=== PATIENT | female | born 1980 | race Caucasian/White ===

== ENCOUNTER 2017-10-09 14:05 | Outpatient (CLI) | payer BC | END 2017-10-09 14:06 | disposition home or self-care (01) | LOC: DTY/OP 14:05 | PROVIDERS: ATTEND Surgery | DX: E66.01 Morbid (severe) obesity due to excess calories (principal) | CPT/HCPCS: 97802 ==

== ENCOUNTER 2017-11-09 14:00 | Inpatient (IN) | payer BC ==
[2017-11-09 15:39] VITALS: BMI 54.2
[2017-11-22] MEDS ORDERED: Heparin 5,000 UNITS/ML VIAL ONE (08:28)
[2017-11-22] MEDS ORDERED: CEFAZOLIN/Water 2 GM/20 ML SYRINGE ONE (08:28)
[2017-11-22] MEDS ORDERED: Fentanyl 100 MCG/2 ML VIAL ONE ×3 (09:44→11:57)
[2017-11-22] MEDS ORDERED: Bupivacaine/Epinephrine 0.25% 30 ML VIAL ONE ×2 (09:48→09:49)
[2017-11-22] MEDS ORDERED: Promethazine HCl 25 MG/ML VIAL SLOW IVP PRN (11:51)
[2017-11-22] MEDS ORDERED: Promethazine HCl 25 MG/ML VIAL IM PRN ×2 (11:51→13:46)
[2017-11-22] MEDS ORDERED: Meperidine HCl/PF 25 MG/ML VIAL SLOW IVP PRN (11:51)
[2017-11-22] MEDS ORDERED: Ondansetron HCl/PF 4 MG/2 ML Vial IVP PRN ×2 (11:51→13:46)
[2017-11-22] MEDS ORDERED: HYDROmorphone 2 MG/ML VIAL SLOW IVP PRN (11:51)
[2017-11-22] MEDS ORDERED: fentaNYL Citrate/PF 2,000 MCG in Sodium Chloride 0.9% 60 ML IV PRN (12:31)
[2017-11-22] MEDS ORDERED: diphenhydrAMINE 50 MG/ML VIAL IVP PRN ×2 (12:31→13:46)
[2017-11-22] MEDS ORDERED: diphenhydrAMINE 50 MG/ML VIAL IM PRN (12:31)
[2017-11-22] MEDS ORDERED: Ketorolac Tromethamine 30 MG/ML VIAL IVP PRN (12:31)
[2017-11-22] MEDS ORDERED: Zolpidem Tartrate 5 MG TAB PO PRN (12:31)
[2017-11-22] MEDS ORDERED: diphenhydrAMINE 25 MG CAP PO PRN (12:31)
[2017-11-22] MEDS ORDERED: Naloxone HCl 0.4 mg/ml Vial IV PRN (12:31)
[2017-11-22] MEDS ORDERED: Labetalol HCl 100 MG/20 ML VIAL ONE (12:34)
[2017-11-22] MEDS ORDERED: Communication Order-Pharmacy FS SCH (12:45)
[2017-11-22] MEDS ORDERED: Dextrose 5% in Water 1,000 ML IV PRN (13:46)
[2017-11-22] MEDS ORDERED: Dextrose 50% Abboject 50 ML SYRINGE SLOW IVP PRN (13:46)
[2017-11-22] MEDS ORDERED: hydrALAZINE 20 MG/ML VIAL SLOW IVP PRN (13:46)
[2017-11-22] MEDS ORDERED: Hydrocodone-Acetamin 15 ML UDCUP PO PRN (13:46)
[2017-11-22] MEDS: Acetaminophen 1,000 MG in Premix Bag 1 BAG IVPB SCH ×2 (15:02→20:37)
[2017-11-22] MEDS: D5 1/2 NS w/20 mEq KCL 1,000 ML IV SCH (15:02)
[2017-11-22] MEDS: Ondansetron HCl/PF 4 MG/2 ML Vial IVP PRN (16:41)
[2017-11-22] MEDS: Enoxaparin Sodium 40 MG/0.4 ML SYRINGE SC SCH (20:38)
[2017-11-23] MEDS: D5 1/2 NS w/20 mEq KCL 1,000 ML IV SCH ×4 (00:59→21:03)
[2017-11-23] MEDS ORDERED: Pantoprazole 40 MG VIAL ONE (09:37)
[2017-11-23] MEDS: Acetaminophen 1,000 MG in Premix Bag 1 BAG IVPB SCH ×2 (11:22→11:23)
[2017-11-23] MEDS: Pantoprazole 40 MG VIAL IVP SCH (11:23)
--- NOTE | 2017-11-23 11:54 | OP ---
DATE OF SERVICE: 11/22/2017 PREOPERATIVE DIAGNOSIS: Morbid obesity, BMI 54. POSTOPERATIVE DIAGNOSES: Morbid obesity, BMI 54; paraesophageal hiatal hernia. PROCEDURE: 1. Laparoscopic sleeve gastrectomy with [place] staple line reinforcements and 38 [place] bougie. 2. Paraesophageal laparoscopic hiatal hernia repair without mesh or fundoplication. SURGEON: Nate Johnston M.D. ANESTHESIA: General. ESTIMATED BLOOD LOSS: Minimal. COMPLICATIONS: None. SPECIMEN: Stomach. FINDINGS: Normal postoperative EGD. PROCEDURE IN DETAIL: The patient was taken to the operating room and placed supine on the table. Af ter general anesthetic was obtained, the arms and legs were double strapped to bariatric table. OG t ube was used to decompress the stomach. Left subcostal 5-mm Optiview trocar was placed in the usual fashion without injury and high flow pneumoperitoneum was obtained. Left and right abdominal 12 mm p orts as well as a right subcostal 5 mm port were placed under direct visualization. The Nathansen wa s brought into incision at the xiphoid and used to raise the liver off the GE junction. The patient had a known incisional hernia with omentum in it. There was no intestine or colon in the hernias. T he hernias were left for future repair. Short gastrics were taken down mid body of stomach to left c bonnie of diaphragm. Left colby, angle of His, posterior fundus completely dissected. The upper most po sterior fundus was up in the chest or paraesophageal hiatal hernia. The mediastinum was entered on t he medial to the left colby and circumferential dissection of the esophagus was performed on the right . The stomach was pulled back to the patient's left and the gastrohepatic ligament was opened exposi ng the right colby. The mediastinum is entered just medial to the right colby and the circumferential dissection of the esophagus was performed pulling the GE junction back into the abdominal cavity. Th e fundus was back into the abdominal cavity as well. A 38 bougie was brought in and its tip left in the antrum of the stomach. Short gastrics were taken down to a distance of 6 cm proximal to the pylo bonnie. Multiple loads and [place] stapling device with [place] staple line reinforcements used to form th e sleeve. A green load is fired first 6 cm proximal to the pylorus angled up towards the incisura. Care was taken to avoid being too close to incisura. Multiple loads were gold were then fired up and the stomach was completely transected at the angle of His. The stomach was removed from the left ab dominal incision. The fascial defect was closed GraNee needle 0 Vicryl tie. Ethibond suture and the tie knot system used to place one suture in the posterior crura to reapproximate them. A few bleede rs on the staple line and clipped using laparoscopic clip. EGD scope was passed into the esophagus, stomach to the level of the duodenum without obstruction. There was no stricture at the incisura. N o evidence of air leakage or bleeding internally or through the staple line. EGD scope was used to d ecompress the stomach, it was pulled and removed. All port sites were infiltrated using local anesth etic. The Nathansen retractor was removed under direct visualization without bleeding. All incision s were irrigated and closed using 4-0 Monocryl and Dermabond. The patient was en route to recovery i n stable condition. All instrument counts, needle counts, lap counts were correct.
[2017-11-23 12:48] LABS: Anion Gap 11 mmol/L (10-20); BUN (Urea Nitrogen) 8 mg/dL (7.0-18.7); Calc. Creatinine Clearance 227 mL/min (70-130); Carbon Dioxide 25 mmol/L (22-29); Chloride 105 mmol/L (98-107); Estimated GFR-MDRD 81; Glucose 128 mg/dL (70-105); Potassium 4.1 mmol/L (3.5-5.1); Sodium 137 mmol/L (136-145)
[2017-11-23] MEDS: Ondansetron HCl/PF 4 MG/2 ML Vial IVP PRN (13:32)
[2017-11-23] MEDS: Promethazine HCl 25 MG/ML VIAL IM PRN ×2 (14:34→21:08)
[2017-11-23 18:53] LABS: #Lymphocytes 1.8 thou/uL (1.20-3.40); #Monocytes 0.6 thou/uL (0.11-0.59); #Neutrophils 8.3 thou/uL (1.40-6.50); %Basophils 0.1 % (0.0-1.0); %Eosinophils 0.2 % (0.0-10.0); %Lymphocytes 16.3 % (21.0-51.0); %Monocytes 5.5 % (0.0-10.0); %Neutrophils 77.8 % (42.0-75.0); Hemoglobin 11.4 g/dL (12.0-16.0); Mean Corpuscular HGB CONC 32.4 g/dL (32.0-36.0); Mean Corpuscular Hemoglobin 27.4 pg (27.0-31.0); Mean Corpuscular Volume 84.6 fL (78.0-98.0); Mean Platelet Volume 8.9 fL (7.4-10.4); Platelet Count 300 thou/uL (130-400); Red Blood Cell (RBC) Count 4.18 mill/uL (4.20-5.40); White Blood Cell (WBC) Count 10.7 thou/uL (4.8-10.8)
[2017-11-23] MEDS: Enoxaparin Sodium 40 MG/0.4 ML SYRINGE SC SCH (21:03)
[2017-11-24] MEDS: D5 1/2 NS w/20 mEq KCL 1,000 ML IV SCH ×2 (06:30→12:18)
[2017-11-24] MEDS: Ondansetron HCl/PF 4 MG/2 ML Vial IVP PRN (08:03)
[2017-11-24] MEDS: Pantoprazole 40 MG VIAL IVP SCH (08:05)
[2017-11-24 11:37] VITALS: TEMP 98.1
[2017-11-24] MEDS ORDERED: Hydrocodone-Acetamin 15 ML UDCUP PO PRN (13:06)
--- NOTE | 2017-11-24 15:25 | PRG ---
DATE OF SERVICE: 11/24/2017 SUBJECTIVE: Jihan Bonds is doing well today. She is tolerating her diet. She is not having nause a. She has passed flatus, but no stool. OBJECTIVE: VITAL SIGNS: Stable. LUNGS: Clear to auscultation. CARDIAC: Regular rate and rhythm without murmur, rub, or gallop. ABDOMEN: Soft and nontender. Surgical laparoscopic wound is well healed. No problems. EXTREMITIES: Unremarkable. ASSESSMENT AND PLAN: Discharge home today. Follow up with Dr. Johnston per his plan. Diet and activ ity as previously instructed, advance per bariatric protocol.
[2017-11-24 15:43] VITALS: BP 122/79
== END 2017-11-24 15:55 | disposition home or self-care (01) | DRG 621 ==
LOC: SURG A 11-22 07:59
PROVIDERS: ADMIT Surgery; ATTEND Surgery
PROC: 0DB64Z3 Excision of Stomach, Percutaneous Endoscopic Approach, Vertical (ICD-10-PCS; principal; 2017-11-22)
PROC: 0BQT4ZZ Repair Diaphragm, Percutaneous Endoscopic Approach (ICD-10-PCS; 2017-11-22)
DX: E66.01 Morbid (severe) obesity due to excess calories (principal); Z68.43 Body mass index [BMI] 50.0-59.9, adult; K44.9 Diaphragmatic hernia without obstruction or gangrene
CPT/HCPCS: 80048; 85025; 88307; 88312; 90471; 90686; C9113; G0008; J0131; J1200; J1644; J1650; J2405; J2550; J3010; J7050

== ENCOUNTER 2017-11-09 14:35 | Outpatient (CLI) | payer BC ==
--- NOTE | 2017-11-09 15:43 | RAD ---
TWO VIEWS CHEST: Comparison: None. History: Pre-operative radiograph. FINDINGS: Two views of the chest show normal sized cardiomediastinal silhouette. There is no evidence of consol idation, mass, or pleural effusion. The bones are unremarkable. IMPRESSION: No evidence of acute cardiopulmonary disease. POS: OFF
[2017-11-09 16:13] LABS: #Basophils 0.1 thou/uL (0.0-0.2); #Eosinphils 0.3 thou/uL (0.0-0.7); #Lymphocytes 2.5 thou/uL (1.20-3.40); #Monocytes 0.5 thou/uL (0.11-0.59); %Basophils 0.6 % (0.0-1.0); %Eosinophils 2.8 % (0.0-10.0); %Lymphocytes 21.9 % (21.0-51.0); %Monocytes 4.7 % (0.0-10.0); Hemoglobin 11.7 g/dL (12.0-16.0); Mean Corpuscular HGB CONC 32.7 g/dL (32.0-36.0); Mean Corpuscular Volume 82.5 fL (78.0-98.0); Mean Platelet Volume 7.8 fL (7.4-10.4); Platelet Count 319 thou/uL (130-400); Red Blood Cell (RBC) Count 4.36 mill/uL (4.20-5.40); White Blood Cell (WBC) Count 11.4 thou/uL (4.8-10.8)
[2017-11-09 16:17] LABS: BHCG - Serum Negative (NEGATIVE); Pregs Control Background? CLEAR/WHITE (CLR/WHITE); Pregs Control Bar Appear? YES (CONTROL BAR)
[2017-11-09 16:25] LABS: Hemoglobin A1c 5.9 % (4.0-6.0)
[2017-11-09 16:32] LABS: ALT (SGPT) 19 U/L (8-55); AST (SGOT) 14 U/L (5-34); Albumin 4.3 g/dL (3.5-5.0); Alkaline Phosphatase 61 U/L (40-150); Anion Gap 13 mmol/L (10-20); BUN (Urea Nitrogen) 14 mg/dL (7.0-18.7); Bilirubin, Direct 0.1 mg/dL (0.1-0.3); Bilirubin, Total 0.3 mg/dL (0.2-1.2); Calc. Creatinine Clearance 0 mL/min (70-130); Calcium 9.8 mg/dL (7.8-10.44); Carbon Dioxide 25 mmol/L (22-29); Chloride 100 mmol/L (98-107); Estimated GFR-MDRD 85; Globulin 3.1 g/dL (2.4-3.5); Glucose 85 mg/dL (70-105); Potassium 3.8 mmol/L (3.5-5.1); Protein, Total 7.4 g/dL (6.0-8.3); Sodium 134 mmol/L (136-145)
--- NOTE | 2017-11-10 22:45 | EKG ---
Test Reason : Blood Pressure : / mmHG Vent. Rate : 089 BPM Atrial Rate : 089 BPM P-R Int : 174 ms QRS Dur : 120 ms QT Int : 380 ms P-R-T Axes : 073 -47 047 degrees QTc Int : 462 ms Normal sinus rhythm Low voltage QRS Right bundle branch block Left anterior fascicular block Bifascicular block Possible Lateral infarct , age undetermined Abnormal ECG No previous ECGs available Confirmed by BENOIT DALY, DR. Pacheco ([id number]) on 11/10/2017 10:45:02 PM Referred By: AUDREY Confirmed By:DR. Tara LABOY MD
== END 2017-11-09 14:36 | disposition home or self-care (01) ==
LOC: LABBT 14:35
PROVIDERS: ATTEND Surgery
DX: Z01.818 Encounter for other preprocedural examination (principal); E66.01 Morbid (severe) obesity due to excess calories
CPT/HCPCS: 71046; 80053; 80076; 83036; 84703; 85025; 93005; 93010

== ENCOUNTER 2017-12-03 05:37 | Emergency (ER) | payer BC ==
[2017-12-03 06:20] LABS: #Basophils 0.1 thou/uL (0.0-0.2); #Eosinphils 0.3 thou/uL (0.0-0.7); #Lymphocytes 1.9 thou/uL (1.20-3.40); #Monocytes 0.5 thou/uL (0.11-0.59); %Basophils 0.9 % (0.0-1.0); %Eosinophils 4.1 % (0.0-10.0); %Lymphocytes 24.1 % (21.0-51.0); %Monocytes 6.6 % (0.0-10.0); %Neutrophils 64.3 % (42.0-75.0); Hemoglobin 11.8 g/dL (12.0-16.0); Mean Corpuscular HGB CONC 32.7 g/dL (32.0-36.0); Mean Corpuscular Volume 82.4 fL (78.0-98.0); Mean Platelet Volume 8.2 fL (7.4-10.4); Platelet Count 290 thou/uL (130-400); RBC Distribution Width 12.4 % (11.5-14.5); Red Blood Cell (RBC) Count 4.37 mill/uL (4.20-5.40); White Blood Cell (WBC) Count 7.7 thou/uL (4.8-10.8)
[2017-12-03 06:33] LABS: ALT (SGPT) 67 U/L (8-55); AST (SGOT) 24 U/L (5-34); Albumin 4.1 g/dL (3.5-5.0); Alkaline Phosphatase 73 U/L (40-150); Anion Gap 16 mmol/L (10-20); BUN (Urea Nitrogen) 10 mg/dL (7.0-18.7); Bilirubin, Total 0.4 mg/dL (0.2-1.2); Calc. Creatinine Clearance 0 mL/min (70-130); Calcium 9.5 mg/dL (7.8-10.44); Carbon Dioxide 20 mmol/L (22-29); Chloride 103 mmol/L (98-107); Estimated GFR-MDRD 87; Globulin 2.9 g/dL (2.4-3.5); Glucose 85 mg/dL (70-105); Potassium 3.9 mmol/L (3.5-5.1); Sodium 135 mmol/L (136-145)
[2017-12-03] MEDS ORDERED: Morphine 4 MG/ML VIAL ONE (07:51)
[2017-12-03] MEDS ORDERED: Ondansetron PF 4 MG/2 ML Vial ONE (07:51)
--- NOTE | 2017-12-03 08:00 | ULT ---
PRELIMINARY REPORT/[facility]/EMERGENTY AFTER-HOURS PROCEDURE US Right Duplex Lower Extremity Veins, Limited EXAM DATE/TIME: 12/03/2017 6:23 AM CLINICAL HISTORY: 37 years old, female; Pain; Leg, upper; Right TECHNIQUE: Real-time Duplex ultrasound of the Right Lower Extremity with 2-D orantes scale, color Doppler flow and spectral waveform analysis. Limited exam was focused on the right lower extremity veins. COMPARISON: No relevant prior studies available. FINDINGS: Right deep veins: Unremarkable. The common femoral, femoral and popliteal veins are patent without th rombus. The calf veins were also imaged and were patent. Normal compressibility, augmentation respons e and Doppler waveforms. Right superficial veins: Unremarkable. Saphenofemoral junction is patent without thrombus. Soft tissues: Unremarkable. IMPRESSION: No evidence of DVT in the right lower extremity. Thank you for allowing us to participate in the care of your patient. Dictated and Authenticated by: Nan Castellanos MD 12/03/2017 7:24 AM Central Time ([place]) ULTRASOUND WITH DOPPLER DUPLEX VENOUS LOWER EXTREMITY RIGHT: CPT: 00623 ICD-10-PCS: B54D HISTORY: Pain and edema. TECHNIQUE: Color flow Doppler, spectral waveform analysis of pulsed Doppler, and orantes-scale imaging with yamel amanda and augmentation, were used to evaluate the bilateral common femoral, femoral, popliteal, tire bladder maker ior tibial, and superficial femoral, veins; and the proximal portions of the profunda femoral and gre ater saphenous, veins. FINDINGS: There is appropriate compressibility and flow within the imaged deep vein system of the right lower e xtremity. IMPRESSION: No deep vein thrombosis. POS: [facility]
[2017-12-03 08:28] LABS: Bilirubin Moderate (Negative); Blood, Urine Negative (Negative); Clarity CLOUDY (Clear); Glucose, Urine (Dipstick) Negative (Negative); Leukocyte Negative (Negative); Nitrite Negative (Negative); Protein, Urine (Dipstick) Negative (Neg-Trace); Specific Gravity, Urine 1.015 (1.002-1.036); Urobilinogen 0.2 mg/dL (0.2-1.0); pH, Urine 5.5 (5.0-9.0)
--- NOTE | 2017-12-03 08:38 | CT ---
ABDOMEN AND PELVIS CT WITH CONTRAST: Date: 12/03/17 INDICATION: Progressive abdominal pain. History of prior bariatric surgery. FINDINGS: There is a large, relatively wide-necked hernia of the right mid abdomen with mild inflammation of th e herniated fat. The hernia sac demonstrates a lobulated, multi-necked appearance, and the more centr al/medial, smaller hernia sac does contain a small portion of either nondilated, unopacified bowel ve rsus a small collection of fluid. There is evidence of prior gastric surgery. Liver is mildly heterog eneous, which may be related to component of hepatic steatosis. No hydronephrosis of the kidneys, or evidence of adrenal mass. No inflammatory findings of the pancreas. Spleen is grossly unremarkable. B owel is incompletely assessed without enteric contrast. There is no disseminated free air. The visual ized lung bases reveal no consolidation or effusion. IMPRESSION: Prominent-sized, multicomponent ventral abdominal wall hernia, which either contains a small loop of unopacified nondilated bowel versus a small collection of fluid, difficult to further discern given t he absence of enteric contrast. There is no obvious bowel obstruction or evidence of free air. There is inflammation of the herniated fat. Recommend surgical consultation for further evaluation. POS: [facility]
[2017-12-03] MEDS ORDERED: ISOVUE-370 76%-LOCM 1 ML ONE (13:27)
== END 2017-12-03 09:04 | disposition home or self-care (01) ==
LOC: ERS 05:37
DX: K43.9 Ventral hernia without obstruction or gangrene (principal)
CPT/HCPCS: 36415; 74177; 80053; 81003; 85025; 85379; 85652; 86140; 96374; 96375; J2270; J2405

== ENCOUNTER 2018-02-07 06:04 | Day surgery (SDC) | payer BC ==
[2018-02-01 10:49] VITALS: BMI 45.9
[2018-02-07] MEDS ORDERED: CEFAZOLIN 2 GM/50 ML BAG ONE (06:32)
[2018-02-07] MEDS ORDERED: Meperidine HCl/PF 25 MG/ML VIAL ONE ×2 (06:39→09:30)
[2018-02-07] MEDS ORDERED: Fentanyl 100 MCG/2 ML VIAL ONE (06:39)
[2018-02-07] MEDS ORDERED: Famotidine/PF 20 mg/2ml Vial ONE (06:39)
[2018-02-07] MEDS ORDERED: Bupivacaine/Epinephrine 0.25% 30 ML VIAL ONE (07:09)
[2018-02-07] MEDS ORDERED: HYDROcodone/Acetaminophen 5/325 mg Tablet ONE (11:37)
[2018-02-07] MEDS ORDERED: Ketorolac Tromethamine 30 MG/ML VIAL ONE (20:50)
[2018-02-07] MEDS ORDERED: Ondansetron PF 4 MG/2 ML Vial ONE (20:50)
[2018-02-07] MEDS ORDERED: Glycopyrrolate 0.2 MG/ML 5 ML SYRINGE ONE (20:50)
[2018-02-07] MEDS ORDERED: PROPOFOL 200 MG/20 ML VIAL ONE (20:50)
[2018-02-07] MEDS ORDERED: Succinylcholine Chloride 20 MG/ML 10 ml SYRINGE FS ONE (20:50)
[2018-02-07] MEDS ORDERED: Lidocaine 1% PF 5 ML VIAL ONE (20:50)
[2018-02-07] MEDS ORDERED: Rocuronium Bromide 10 MG/ML (10ML VIAL) ONE (20:50)
[2018-02-07] MEDS ORDERED: Dexamethasone 20 MG/5 ML VIAL ONE (20:50)
--- NOTE | 2018-02-08 15:02 | OP ---
DATE OF PROCEDURE: 02/07/2018 PREOPERATIVE DIAGNOSIS: Incisional hernia. POSTOPERATIVE DIAGNOSIS: Incisional hernia. PROCEDURE PERFORMED: Da Marybeth laparoscopic incisional hernia repair with mesh, Ventralex ST 8 x 10 cm. ANESTHESIA: General. ESTIMATED BLOOD LOSS: Minimal. COMPLICATIONS: None. SPECIMEN: None. FINDINGS: Incisional hernia. DESCRIPTION OF PROCEDURE: The patient was taken to the operating room and laid supine on the operating room table. After general anesthetic was obtained, the Mena was placed and the abdomen was prepped and draped in a sterile fashion. Left subcostal 5-mm Optiview trocar was placed in usual fashion. High-flow pneumoperitoneum was obtained. Left and right abdominal 8-mm robot assist ports were placed. All ports were docked to the robot. The omental fat was reduced back into the abdominal cavity from the hernia defect. The hernia defect was closed using a running #1 V-Loc transversely. An 8 x 10 cm piece of Ventralex mesh was brought into the sterile field and placed into the abdominal cavity. The exposed mesh portion was placed up against the posterior fascia. The nonadherent surface left down against the abdominal viscera. 2-0 V-Loc suture was used to sew the mesh circumferentially to the posterior fascia. All needles were removed from the abdomen. No injury to any intraabdominal structures. All port sites were infiltrated using local anesthetic and removed under direct visualization. Pneumoperitoneum was let down. The patient was sent to Recovery in stable condition. All instrument counts, needle counts, and lap counts were correct. Job ID: [id number]
== END 2018-02-08 13:15 | disposition home or self-care (01) ==
LOC: SDC 06:04
PROVIDERS: ATTEND Surgery
PROC: 0WUF4JZ Supplement Abdominal Wall with Synthetic Substitute, Percutaneous Endoscopic Approach (ICD-10-PCS; principal; 2018-02-07)
DX: K43.2 Incisional hernia without obstruction or gangrene (principal); Z79.899 Other long term (current) drug therapy
CPT/HCPCS: 96374; J0131; J1100; J1885; J2001; J2175; J2405; J2704; J3010; S0028